=== PATIENT | female | born 1995 | race Two or more races ===

== ENCOUNTER 2021-05-06 22:58 | Emergency (ER) | payer OTHER ==
[~2021-05-06] VITALS: Ht 160 cm; Wt 63.6 kg
[~2021-05-06 22:58] MED LIST: FLUT10.6 IH; FLUT1DIS3 INH; PROVENTIL HFA6.7 GM IH; UNABLE MC
[2021-05-06] MEDS ORDERED: IPRATRPIUM/ALBUTEROL 0.5/2.5MG 3 ML NEBU. ONE (23:07)
[2021-05-06] MEDS ORDERED: methylPREDNISolone SOD SUCC PF 125 MG/2 ML VIAL. IV ONE (23:15)
[2021-05-06] MEDS ORDERED: KETOROLAC 30 MG/ML VIAL. IVP ONE (23:15)
[2021-05-06] MEDS: IPRATRPIUM/ALBUTEROL 0.5/2.5MG 3 ML NEBU. NEB ONE (23:15)
--- NOTE | 2021-05-06 23:16 | PHYS DOC ---
Past Medical History Past Medical History: Asthma (BARBARA MATTA RESEARCH MICROBIOLOGIST) Past Surgical History: No Surgical History (BARBARA MATTA APRN) Smoking Status: Never Smoker Alcohol Use: None Drug Use: None (BARBARA MATTA APRN) General Adult EDM: Chief Complaint: ASTHMA HPI: HPI: Patient is a 25 year old female who presents with asthma exacerbation. EMS states that when they got there the patient was audibly wheezing and they had to carry her to the ambulance. EMS states that the patient had a GCS of 11 at the time. They gave her a DuoNeb and a CPAP and she started to awaken more. Patient is tachycardic. She received 1-05/12 duo nebs by EMS. Upon arrival patient is 100% on room air and shook her head yes when I asked if she was breathing better. She did look towards me when I asked and squeeze my hand when I asked. Patient did receive her Covid booster shot earlier today. Patient's only history is asthma. (BARBARA MATTA RESEARCH MICROBIOLOGIST) Review of Systems: Review of Systems: Constitutional: Denies fever or chills. [] Eyes: Denies change in visual acuity. [] HENT: Denies nasal congestion or sore throat. [] Respiratory: Denies cough or +shortness of breath. [] Cardiovascular: Denies chest pain or edema. +Tachycardia[] GI: Denies abdominal pain, nausea, vomiting, bloody stools or diarrhea. [] : Denies dysuria. [] Musculoskeletal: Denies back pain or joint pain. [] Integument: Denies rash. [] Neurologic: Denies headache, focal weakness or sensory changes. +AMS [] Endocrine: Denies polyuria or polydipsia. [] Lymphatic: Denies swollen glands. [] Psychiatric: Denies depression or anxiety. [] (BARBARA MATTA APRN) Heart Score: C/O Chest Pain: No (BARBARA MATTA APRN) Current Medications: Current Medications Medications (Trade) Dose Ordered Sig/Corrine Start Time Stop Time Status Last Admin Dose Admin Albuterol/ Ipratropium (Duoneb) 3 ml 1X ONCE 05/06/21 23:15 05/06/21 23:16 UNV Ketorolac Tromethamine (Toradol 30mg Vial) 30 mg 1X ONCE 05/06/21 23:15 05/06/21 23:16 UNV Methylprednisolone Sodium Succinate (SOLU-Medrol 125MG VIAL) 125 mg 1X ONCE 05/06/21 23:15 05/06/21 23:16 UNV (BARBARA MATTA RESEARCH MICROBIOLOGIST) Allergies: Allergies: Allergies Coded Allergies Type Severity Reaction Last Updated Verified No Known Drug Allergies 01/31/14 No (BARBARA MATTA APRN) Physical Exam: PE: Constitutional: Well developed, well nourished, no acute distress, non-toxic appearance. [] HENT: Normocephalic, atraumatic, bilateral external ears normal, oropharynx moist, no oral exudates, nose normal. [] Eyes: PERRLA, EOMI, conjunctiva normal, no discharge. [] Neck: Normal range of motion, no tenderness, supple, no stridor. [] Cardiovascular:Heart rate regular rhythm, no murmur [] Lungs & Thorax: Bilateral upper breath sounds clear and lower diminished to auscultation [] Abdomen: Bowel sounds normal, soft, no tenderness, no masses, no pulsatile masses. [] Skin: Warm, dry, no erythema, no rash. [] Back: No tenderness, no CVA tenderness. [] Extremities: No tenderness, no cyanosis, no clubbing, ROM intact, no edema. [] Neurologic: Alert and oriented X 2, normal motor function, normal sensory function, no focal deficits noted. Following command and shaking head yes or no to questions.[] Psychologic: Affect normal, judgement normal, mood normal. [] (BARBARA MATTA APRN) EKG: EK by Dr. Moran as a sinus tachycardia and no STEMI (BARBARA MATTA RESEARCH MICROBIOLOGIST) Radiology/Procedures: Radiology/Procedures: [] Impression: [facility] [address] [place] [address] IMAGING REPORT Signed PATIENT: MELANIE BARRERA LACCOUNT: [id number] : 1995 LOCATION: ER AGE: 25 SEX: F EXAM STATUS: PRE ER ORD. PHYSICIAN: BARBARA MATTA APRN REASON: SOA PROCEDURE: PORTABLE CHEST 1V Exam: Chest one view INDICATION: Short of air TECHNIQUE: Frontal view of the chest Comparisons: None FINDINGS: The cardiomediastinal silhouette and pulmonary vessels are within normal limits. The lung and pleural spaces are clear. IMPRESSION: No acute cardiopulmonary process. Electronically signed by: Johnny Moore MD (05/06/2021 11:27 PM) [facility] DICTATED and SIGNED BY: JOHNNY MOORE MD DATE: 05/06/21 [id number] 0 (BARBARA MATTA APRN) Course & Med Decision Making: Course & Med Decision Making Pertinent Labs and Imaging studies reviewed. (See chart for details) COVID-19 CRITERIA: The patient was evaluated during the global COVID-19 pandemic, and that diagnosis was suspected/considered upon their initial presentation. Their evaluation, treatment and testing was consistent with current guidelines for patients who present with complaints or symptoms that may be related to COVID-19. See HPI. Alert and oriented x2. Follows commands and shakes her head yes or no. Not speaking at this time. She is 100% on room air. Patient's temperature is right at 100. Skin pink warm and dry. Lungs are clear in upper lobes but diminished in lower lobes. Patient is Covid positive. Chest x-ray shows no acute findings. 0030: Patient is alert, talking and answering all questions appropriately. She states she is feeling better she said that she is still having a little bit of chest tightness but she is breathing much easier now. States that her throat did begin to hurt this morning. Her tonsils do look a little reddened but there is no exudates. We will check her for strep throat. 0045: Patient signed over to Dr Moran for follow up on labs and imaging. [] (BARBARA MATTA APRN) Course & Med Decision Making Patient evaluated. Chest x-ray no focal infiltrate. Patient is Covid test positive. Treatment included IV fluids. Patient's heart rate greatly improved. Educated on Tylenol and ibuprofen use. Discussed Covid contact precaution and isolation. Patient discharged home. (SANDRA MORAN I DO) Dragon Disclaimer: Dragmike Disclaimer: This electronic medical record was generated, in whole or in part, using a voice recognition dictation system. (BARBARA MATTA APRN) COVID-19 Patient Risks: Age 65 or older: No Sign of co-morbidity: Yes Exp to person + for COVID: No Exp to PUI: No Travel from affected area: No Lower respiratory symptoms: Yes Fever: Yes Other: No (BARBARA MATTA APRN) PPE Use: Full PPE with N95 mask or PAPR: Yes (BARBARA MATTA APRN) Departure Departure Impression: Primary Impression: Asthma exacerbation Qualified Codes: J45.21 - Mild intermittent asthma with (acute) exacerbation Additional Impression: COVID-19 Disposition: 01 HOME / SELF CARE / HOMELESS Condition: STABLE Patient Instructions: Viral Infections Additional Instructions: You have been tested for or diagnosed with COVID-19. It is an infection caused by a new type of coronavirus. COVID-19 will cause cold-like or mild flu symptoms in most. It can cause more severe symptoms like problems breathing in some. There is no treatment for COVID-19. The body will clear the infection over time. Self-care will help to ease discomfort. Steps to Take: Self-Care Rest as needed. Healthy habits may help you feel better. Steps include: Choose healthy foods including fruits and vegetables. Drink water throughout the day. Get plenty of sleep each night. If you smoke, try to quit. It may ease breathing. Avoid alcohol. Keep Others Healthy The virus can spread to others. Droplets are released every time you sneeze or cough. The droplets can get into the mouth, nose, or eyes of people near you and lead to infection. To lower the chances of spreading COVID-19 to others: Stay at home until your doctor has said it is safe to leave. If you tested posi tive this will mean staying isolated until both of the following are true: At least 7 days have passed since the start of illness. You are free of fever for at least 72 hours without the use of medicine. During this time: - Avoid public areas, events, or transportation. Do not return to work or school until your doctor has said it is safe to do so. - Call ahead if you need to go to a medical center. Let them know you may have COVID-19. It will help them guide you where to go. They may also ask you to wear a facemask when you come to the office. - If you call for emergency medical services, let them know you may have COVID-19. While at home: - Try to avoid close contact with others. Stay about 6 feet away. - If possible, spend most of your time in a separate room from others. - Use a face mask if you will be in close contact with others such as sharing a room or vehicle. - Have someone wipe down common surfaces in the home. Use household technical support intern every day on areas like doorknobs, counters, or sinks. - Cough or sneeze into a tissue. Throw the tissue away right after use. If a tissue is not available, cough or sneeze into your elbow. - Wash your hands often. Wash them after sneezing or coughing. Use soap and water and wash for at least 20 seconds. Alcohol based hand boat cleaner can be used if soap and water is not available. - Do not prepare food for others. Avoid sharing personal items like forks, spoons, or toothbrushes. - Avoid close contact with pets while you are sick. There is no evidence of the virus passing to pets. This is a safety step until more is known about this virus. Isolation can be frustrating. Social interaction can help. Keep in touch with friends and family through phone and tech options. You can still interact with others in your home, just keep a safe distance of about 6 feet. Follow-up: Your doctors office will check in with you to see if there are any changes in your health. You may be asked to keep track of symptoms to share with them. They will also let you know when you are clear to be in public again. Problems to Look Out For: Contact your doctor if your recovery is not going as you expect. Get emergency care if you have problems such as: - Trouble breathing - Nonstop chest pain or pressure - Changes in awareness, confusion, or problems waking - Lips or face have bluish color - Worsening of symptoms If you think you have an emergency, call for emergency medical services right away. [place] taken [place] [facility] BARBARA Manley APRN May 06, 2021 23:16 SANDRA MORAN I DO May 07, 2021 04:11
--- NOTE | 2021-05-06 23:30 | RAD ---
Exam: Chest one view INDICATION: Short of air TECHNIQUE: Frontal view of the chest Comparisons: None FINDINGS: The cardiomediastinal silhouette and pulmonary vessels are within normal limits. The lung and pleural spaces are clear. IMPRESSION: No acute cardiopulmonary process. Electronically signed by: Johnny Walker MD (05/06/2021 11:27 PM) [facility]
[2021-05-06 23:40] LABS: BASO # 0.1 x10^3/uL (0.0-0.2); BASO % 1 % (0-3); EOS # 0.1 x10^3/uL (0.0-0.7); EOS % 1 % (0-3); HEMATOCRIT 37.8 % (36.0-47.0); HEMOGLOBIN 12.8 g/dL (12.0-15.5); LYMPH # 2.1 x10^3/uL (1.0-4.8); LYMPH % 21 % (24-48); MEAN CORPUSCULAR HEMOGLOBIN 30 pg (25-35); MEAN CORPUSCULAR HGB CONC 34 g/dL (31-37); MEAN CORPUSCULAR VOLUME 89 fL (79-100); MONO # 0.9 x10^3/uL (0.0-1.1); MONO % 9 % (0-9); NEUT # 6.9 x10^3/uL (1.8-7.7); NEUT % 69 % (31-73); PLATELET COUNT 267 x10^3/uL (140-400); RED BLOOD COUNT 4.25 x10^6/uL (3.50-5.40); RED CELL DISTRIBUTION WIDTH 12.9 % (11.5-14.5); WHITE BLOOD COUNT 10.1 x10^3/uL (4.0-11.0)
[2021-05-06] MEDS ORDERED: ACETAMINOPHEN 650 MG SUPP.RECT. PR ONE (23:45)
[2021-05-06 23:47] LABS: CALCIUM 8.6 mg/dL (8.5-10.1); POTASSIUM 3.4 mmol/L (3.5-5.1)
[2021-05-07 00:04] LABS: ALBUMIN 3.7 g/dL (3.4-5.0); ALBUMIN/GLOBULIN RATIO 1.1 (1.0-1.7); TOTAL BILIRUBIN 0.2 mg/dL (0.2-1.0)
[2021-05-07 00:09] LABS: BILIRUBIN,URINE NEGATIVE (NEG); CLARITY,URINE CLEAR; COLOR,URINE YELLOW; NITRITE,URINE NEGATIVE (NEG); PROTEIN,URINE NEGATIVE (NEG-TRACE); UROBILINOGEN,URINE 0.2 mg/dL (0.2 mg/dL)
[2021-05-07 00:19] LABS: BACTERIA,URINE MANY /HPF (0-FEW); RBC,URINE OCC /HPF (0-2)
[2021-05-07 00:19] LABS: INFLUENZA A PATIENT NEGATIVE (NEGATIVE); INFLUENZA B PATIENT NEGATIVE (NEGATIVE)
[2021-05-07 00:25] LABS: BARBITURATES NEG (NEG); BENZODIAZEPINES NEG (NEG); CANNABINOIDS NEG (NEG); COCAINE NEG (NEG); METHADONE NEG (NEG); OPIATES NEG (NEG); PHENCYCLIDINE NEG (NEG)
[2021-05-07 00:27] LABS: AMPHETAMINE/METHAMPHETAMINE NEG (NEG)
[2021-05-07] MEDS ORDERED: IV NORMAL SALINE 1000ML BAG 1,000 ML IV ONE (00:30)
[2021-05-07] MEDS ORDERED: ACETAMINOPHEN 500 MG TABLET PO ONE (00:45)
[2021-05-07] MEDS ORDERED: MAGNESIUM SULFATE 2GM 50 ML IV ONE (00:45)
--- NOTE | 2021-05-07 00:51 | RAD ---
CT head without contrast PQRS statement: CT scans at this facility use dose reduction including either automated exposure cont rol, iterative reconstructions, and /or weight based radiation dosing via mA and kV modification when appropriate to reduce radiation dose to as low as reasonably achievable. HISTORY: Altered mental status. FINDINGS: No intracranial hemorrhage, mass, hydrocephalus, extra-axial fluid collections or infarctio n. Orbits, mastoids and bones are unremarkable. IMPRESSION: Normal exam. Electronically signed by: Karl Hudson MD (05/07/2021 12:48 AM) [facility]
[2021-05-07 03:47] LABS: HCO3 COOX 25 mmol/L (21-28)
[2021-05-07 03:48] LABS: BASE EXCESS COOX 0 mmol/L (-3-3); SAT O2 COOX 94 % (92-99)
[2021-05-07 03:49] LABS: CORRECTED PCO2 COOX 44 mmHg; CORRECTED PH COOX 7.38; CORRECTED PO2 COOX 78 mmHg; PCO2 COOX 41 mmHg (35-46); PO2 COOX 70 mmHg (85-108)
[2021-05-07 03:50] LABS: METHEMOGLOBIN 0.4 % (0.0-1.9)
[2021-05-07 04:32] VITALS: BP 99/57
--- NOTE | 2021-05-07 13:09 | EKG ---
[facility] [address] [place] [address] Test Date: 2021-05-06 Test Time: 23:33:11 Pat Name: MELANIE BARRERA Department: Room: Gender: F Tank Tender: : 1995 Requested By: BARBARA MATTA Order Number: [id number] Reading MD: Luis Woodall Measurements Intervals [place] Rate: 134 P: 222 AR: 86 QRS: 79 QRSD: 70 T: 49 QT: 340 QTc: 515 Interpretive Statements SINUS TACHYCARDIA POSSIBLE LEFT ATRIAL ABNORMALITY ST & T ABNORMALITY, CONSIDER INFERIOR ISCHEMIA OR LEFT VENTRICULAR STRAIN ABNORMAL ECG Electronically Signed On 05-08-2021 8:14:38 J[employer]ITOR AND CLEANER by Luis Woodall
== END 2021-05-07 05:00 | disposition home or self-care (01) ==
LOC: ER 22:58
DX: U07.1 COVID-19 (principal); J45.21 Mild intermittent asthma with (acute) exacerbation
CPT/HCPCS: 36415; 36600; 70450; 71045; 80053; 80307; 81001; 81025; 82550; 82805; 83605; 83735; 83880; 84484; 85025; 85379; 87070; 87086; 87426; 87804; 87880; 93005; 94640; 96365; 96375; 99285; J1885; J2930; J3475; J7030; U0003